=== PATIENT | male | born 1990 | race Caucasian/White ===

== ENCOUNTER 2024-10-24 17:21 | Emergency (ER) | payer OTHER, SELFPAY ==
[2024-10-24] VITALS (14 sets, daily range): BP systolic 126–140; BP diastolic 87–98; PULSE 76–92; RESP 13–21; TEMP 37.6; O2SAT 95–99
--- NOTE | ~2024-10-24 | XR_ITS ---
CHEST RADIOGRAPH CLINICAL HISTORY: chest pain . COMPARISON: None available TECHNIQUE: Single portable view of the chest. FINDINGS The cardiomediastinal silhouette is unremarkable. The lungs are clear. Visualized osseous structures and soft tissues are unremarkable. IMPRESSION: No focal infiltrate or effusion. Reviewed, dictated and finalized at location A. ER MACHINE OPERATOR
--- NOTE | 2024-10-24 17:23 | ED_ITS ---
HPI - Chest Pain General Chief Complaint: Chest Pain Stated Complaint: pain on left side of chest & back Time Seen by Provider: 10/24/24 17:23 Source: patient Mode of arrival: ambulatory Limitations: no limitations History of Present Illness HPI narrative: 34-year-old male with no significant past medical history presents to the ED with a 1 day history of -- left-sided chest pain which radiates to his arm. Pain is intermittent with spontaneous resolution. Pain is not precipitated by exercise. -- Shortness of breath. -- He feels a cold flush over his body. -- Upper abdominal pain. He had some nausea without any vomiting. No diarrhea. No radiation of the pain is rated -- pressure behind right eye which started yesterday and resolved spontaneously. Currently he has blurred vision. MD complaint: chest pain Onset (ago): day(s) ( 1 day) Timing of current episode: episodic Prior episodes: Yes Onset: during rest Pain location: left chest Pain radiation: none Severity: moderate Quality: aching Relieving factors: nothing Exacerbating factors: nothing Associated symptoms: nausea Treatment prior to arrival: none Risk Factors Coronary artery disease risk factors: hyperlipidemia Thoracic aortic dissection risk factors: none Review of Systems 2 Review of Systems: All systems reviewed & are unremarkable except as noted in HPI and below Constitutional: Constitutional: Reports as per HPI and Reports no additional constitutional complaints Eyes: Eyes: Reports as per HPI and Reports no additional eye complaints ENT: Reports system reviewed and no additional complaints, except as documented and Reports as per HPI Cardiovascular: Cardiovascular: Reports as per HPI, Reports no additional cardiovascular complaints and Reports chest pain Respiratory: Respiratory: Reports as per HPI, Reports no additional respiratory complaints and Reports dyspnea Gastrointestinal: Gastrointestinal: Reports as per HPI, Reports no additional gastrointestinal complaints and Reports abdominal pain Genitourinary: Genitourinary: Reports no additional male genitourinary complaints Musculoskeletal: Musculoskeletal: Reports no additional musculoskeletal complaints and Reports as per HPI Integumentary/Breasts: Skin/Breast: Reports system reviewed and no additional complaints, except as docu and Reports as per HPI Neurologic: Reports system reviewed and no additional complaints, except as documented and Reports as per HPI Psychiatric: Psychiatric: Reports no additional psychiatric complaints and Reports as per HPI Endocrine: Endocrine: Reports no additional endocrine complaints and Reports as per HPI Hematologic/Lymphatic: Hematologic/Lymphatic: Reports no additional hematologic/lymphatic complaints and Reports as per HPI Allergic/Immunologic: Allergic/Immunologic: Reports no additional allergic/immunologic complaints and Reports as per HPI Exam 2 Narrative: temperature is 99.6?. Const: General: healthy appearing and no acute distress Nutritional Appearance: well nourished Orientation/consciousness: patient oriented x3 Limitations: no limitations HENMT: Head: normal to inspection Ears: external ears normal F blossom/Nose/Sinus: Normal external nose present Face and sinus: normal facial exam Mouth: Yes Normal oral and palatal mucosa present Throat: posterior oropharynx normal Eyes: Conjunctivae: conjunctivae normal Pupils: Equal, round and reactive pupils present EOM: EOMs intact bilaterally Direct Ophthalmoscopy: no photophobia Other: Funduscopic examination of the right eye did not show any hemorrhage or exudates on the right side. Neck: Neck: normal visual inspection, no lymphadenopathy and no meningeal signs Chest: Chest palpation & inspection: normal inspection of the chest Resp: Effort & Inspection: normal respiratory effort Auscultation: clear to auscultation bilaterally Cardio: Rate: regular rate Rhythm: regular rhythm GI: GI Palp: Yes Soft to palpation Auscultation: normal bowel sounds O ther: No tenderness/ rigidity /rebound : General: Yes no CVA tenderness Back/Spine/Pelvis: Back: no CVA tenderness Skin: General skin exam: normal color Rashes: no rashes Wounds: no wounds Neuro: General: patient oriented x3, moves all extremities, no meningeal signs, no focal motor deficits and CN's II-XI intact bilaterally Cranial nerves: Yes Nystagmus not present Speech: normal speech Gait exam (Neuro): Normal gait present Extrem: General: normal to inspection and no clubbing, cyanosis or edema Psych: Mental Status: mental status grossly normal Affect: normal affect Course Course Emergency Course: Chest pain-- negative troponins. Chest x-ray is unremarkable. EKG did not show any acute findings. Abdominal pain-- normal white cell count. Normal lipase. shortness of breath- Patient is saturating 98% on room air with a respiratory rate of 20. Chest is clear on auscultation. right eye blurred vision-- Eye examination is unremarkable. anxiety Vital Signs Vital signs: Vital Signs Temperature 37.6 C 10/24/24 17:23 Pulse Rate 89 10/24/24 17:23 Respiratory Rate 20 10/24/24 17:23 Blood Pressure 140/98 H 10/24/24 17:23 Pulse Oximetry 98 10/24/24 17:23 Oxygen Delivery Room Air 10/24/24 17:23 Temperature 37.6 C 10/24/24 17:23 Pulse Rate 92 10/24/24 17:46 Respiratory Rate 21 H 10/24/24 17:46 Blood Pressure 133/93 H 10/24/24 17:46 Pulse Oximetry 99 10/24/24 17:46 Oxygen Delivery Room Air 10/24/24 17:46 MDM - Chest Pain MDM Narrative Medical decision making narrative: Chest pain abdominal pain anxiety Differential Diagnosis Differential diagnosis: Likely atypical chest pain Medical Records Data Attestation: I reviewed the patient's medical records. Lab Data 10/24/24 17:44 10/24/24 17:44 Labs: Lab Results 10/24/24 10/24/24 10/24/24 Range/Units 17:39 17:44 17:45 WBC 7.3 (4.8-10.8) K/mm3 RBC 4.90 (4.70-6.10) M/mm3 Hgb 14.6 (14.0-18.0) g/dL Hct 43.6 (40.0-54.0) % MCV 89.0 (78.0-102.0) fL MCH 29.8 (27.0-31.0) pg MCHC 33.5 (32-36) g/dL RDW 13.2 (11.6-14.4) % Plt Count 281 (150-420) K/mm3 MPV 9.5 (8.7-11.0) fl Immature Gran % (Auto) 0.3 H (0.0-0.0) % Neut % (Auto) 63.7 (50.0-70.0) % Lymph % (Auto) 24.8 (18.0-42.0) % [place] % (Auto) 8.5 (2.0-11.0) % Eos % (Auto) 1.9 (1.0-6.0) % Baso % (Auto) 0.8 (0.0-1.0) % Lymph # (Auto) 1.81 (1.10-4.50) K/mm3 [place] # (Auto) 0.62 (0.10-0.90) K/mm3 Eos # (Auto) 0.14 (0.02-0.50) K/mm3 Baso # (Auto) 0.06 (0.00-0.10) K/mm3 Abs Immat Gran (auto) 0.02 H (0.00-0.00) K/mm3 Absolute Neuts (auto) 4.65 (1.70-7.20) K/mm3 Absolute Nucleated RBC 0.00 (0.00-0.00) K/mm3 Nucleated RBC % 0.0 (0-0.0) % PT 11.5 (9.50-12.1) Seconds INR 1.0 D-Dimer 0.19 (0.19-0.50) mg/L Sodium 140 (136-145) mmol/L Potassium 3.4 L (3.5-5.1) mmol/L Chloride 104 (98-108) mmol/L Carbon Dioxide 27 (21-32) mmol/L Anion Gap 9 (4-12) mmol/L BUN 9 (7-18) mg/dL Creatinine 0.78 (0.70-1.30) mg/dL Estim Creat Clear Calc 139 ml/min Estimated GFR > 60 (59 - ) Glucose 105 H (70-99) mg/dL Calculated Osmolality 288 (285-295) mOsm/kg Lactic Acid 0.9 (0.4-2.0) mmol/L Calcium 8.6 (8.5-10.1) mg/dL Total Bilirubin 0.5 (0.00-1.00) mg/dL AST 28 (15-37) U/L ALT 51 (16-63) U/L Alkaline Phosphatase 54 (46-116) U/L Troponin I < 4.0 (0.00-60.4) ng/L Total Protein 7.2 (6.4-8.2) g/dL Albumin 4.0 (3.4-5.0) g/dL Lipase 20 (16-77) U/L Influenza A (RT-PCR) Negative (Negative) Influenza B (RT-PCR) Negative (Negative) RSV (RT-PCR) Negative (Negative) SARS-CoV-2 RNA (RT-PCR) Negative (Negative) Discharge Plan Discharge Clinical Impression: Atypical chest pain, Anxiety Abdominal pain Qualifiers: Abdominal location: generalized Qualified Code(s): R10.84 - Generalized abdominal pain Patient Disposition: Home, Self-Care Condition: Stable Instructions: Antibiotic Form, Anxiety (ED) Patient Language: Yi Follow-up/Referrals: Fidel,POLA Bonilla [Primary Care Provider] - Time of Disposition: 18:48
--- NOTE | 2024-10-24 17:32 | ECG_ITS ---
Test Date: 2024-10-24 17:56:21 Measurements Intervals [place] Rate: 88 P: 35 NM: 136 QRS: 13 QRSD: 85 T: 31 QT: 366 QTc: 444 Interpretive Statements SINUS RHYTHM INCOMPLETE RIGHT BUNDLE BRANCH BLOCK No previous ECG available for comparison Electronically Signed On 10-26-2024 16:14:40 COMPUTER AIDED DESIGN DESIGNER by Esme Cheema M.D.
--- NOTE | 2024-10-24 17:40 | PC.NURSE ---
Covid culture sent to lab
[2024-10-24 17:49] LABS: Basophils Absolute Auto 0.06 K/mm3 (0.00-0.10); Basophils Percent Auto 0.8 % (0.0-1.0); Eosinophils Absolute Auto 0.14 K/mm3 (0.02-0.50); Eosinophils Percent Auto 1.9 % (1.0-6.0); Hematocrit 43.6 % (40.0-54.0); Hemoglobin 14.6 g/dL (14.0-18.0); Immature Granulocyte Absolute 0.02 K/mm3 (0.00-0.00); Immature Granulocyte Percent A 0.3 % (0.0-0.0); Lymphocytes Absolute Auto 1.81 K/mm3 (1.10-4.50); Lymphocytes Percent Auto 24.8 % (18.0-42.0); Mean Corpuscular HGB Conc 33.5 g/dL (32-36); Mean Corpuscular Hemoglobin 29.8 pg (27.0-31.0); Mean Platelet Volume 9.5 fl (8.7-11.0); Monocytes Absolute Auto 0.62 K/mm3 (0.10-0.90); Monocytes Percent Auto 8.5 % (2.0-11.0); Neutrophils Absolute Auto 4.65 K/mm3 (1.70-7.20); Neutrophils Percent Auto 63.7 % (50.0-70.0); Platelet Count Result 281 K/mm3 (150-420); Red Cell Distribution Width 13.2 % (11.6-14.4); White Blood Count 7.3 K/mm3 (4.8-10.8)
[2024-10-24 18:06] LABS: D Dimer 0.19 mg/L (0.19-0.50); Prothrombin Time 11.5 Seconds (9.50-12.1)
[2024-10-24 18:09] LABS: Lactic Acid Reflex 0.9 mmol/L (0.4-2.0)
[2024-10-24 18:20] LABS: Alanine Aminotransferase 51 U/L (16-63); Alkaline Phosphatase 54 U/L (46-116); Anion Gap 9 mmol/L (4-12); Aspartate Amino Transferase 28 U/L (15-37); Bilirubin,Total 0.5 mg/dL (0.00-1.00); Blood Urea Nitrogen 9 mg/dL (7-18); Calcium 8.6 mg/dL (8.5-10.1); Carbon Dioxide 27 mmol/L (21-32); Chloride 104 mmol/L (98-108); Estimated CRCL calculation 139 ml/min; Estimated Glomerular Filt Rate > 60; Glucose 105 mg/dL (70-99); Osmolality Calculated 288 mOsm/kg (285-295); Potassium 3.4 mmol/L (3.5-5.1); Sodium 140 mmol/L (136-145); Total Protein 7.2 g/dL (6.4-8.2)
[2024-10-24 18:20] LABS: Lipase 20 U/L (16-77); Troponin I < 4.0 ng/L (0.00-60.4)
[2024-10-24 18:29] LABS: SARS-CoV-2 RNA PCR Negative (Negative)
[2024-10-24 18:35] LABS: Influenza A QL RT-PCR Negative (Negative); Influenza B QL RT-PCR Negative (Negative); RSV RNA, RT-PCR Negative (Negative)
== END 2024-10-24 18:53 | disposition home or self-care (01) ==
PROVIDERS: Emergency Provider Internal Medicine Critical Care Medicine; PCP Physician Assistant
DX: R07.89 Other chest pain (principal); R10.84 Generalized abdominal pain; F41.9 Anxiety disorder, unspecified; Z20.822 Contact with and (suspected) exposure to COVID-19
CPT/HCPCS: 36415; 71045; 80053; 83605; 83690; 84484; 85025; 85380; 85610; 87637; 93005; 99284

== ENCOUNTER 2025-09-15 23:35 | Emergency (ER) | payer OTHER, SELFPAY ==
--- NOTE | 2025-09-15 23:38 | ED.UPPEXIN ---
HPI - Extremity Injury (Upper) General Chief Complaint: Extremity Problem,Nontraumatic Stated Complaint: shoulder pain Time Seen by Provider: 09/15/25 23:36 Source: patient Mode of arrival: ambulatory Limitations: no limitations History of Present Illness HPI narrative: Patient is a 35-year-old male with a right shoulder redness and lump noted today. Patient has a history of a DVT and was concerned about this being a DVT. Patient was shoveling snow yesterday and it appeared thereafter. MD complaint: injury to: right and shoulder Onset (ago): day(s) (Two) Other injuries: none Place: home Severity: moderate Severity scale (1-10): 4 Relieving factors: immobilization Exacerbating factors: movement of extremity Context: laceration Associated symptoms: denies other symptoms Treatments prior to arrival: other (None) Review of Systems Review of Systems: All systems reviewed & are unremarkable except as noted in HPI and below Constitutional: Constitutional: Reports no additional constitutional complaints Eyes: Eyes: Reports no additional eye complaints ENT: Reports system reviewed and no additional complaints, except as documented Cardiovascular: Cardiovascular: Reports no additional cardiovascular complaints Respiratory: Respiratory: Reports no additional respiratory complaints Gastrointestinal: Gastrointestinal: Reports no additional gastrointestinal complaints Genitourinary: Genitourinary: Reports no additional male genitourinary complaints Musculoskeletal: Musculoskeletal: Reports no additional musculoskeletal complaints Integumentary/Breasts: Skin/Breast: Reports system reviewed and no additional complaints, except as docu Neurologic: Reports system reviewed and no additional complaints, except as documented Psychiatric: Psychiatric: Reports no additional psychiatric complaints Endocrine: Endocrine: Reports no additional endocrine complaints Hematologic/Lymphatic: Hematologic/Lymphatic: Reports no additional hematologic/lymphatic complaints Allergic/Immunologic: Allergic/Immunologic: Reports no additional allergic/immunologic complaints Exam Const: General: healthy appearing Nutritional Appearance: well nourished Orientation/consciousness: patient oriented x3 Limitations: no limitations HENMT: Head: normal to inspection Ears: external ears normal Face/Nose/Sinus: Normal external nose present Eyes: Conjunctivae: conjunctivae normal Pupils: Equal, round and reactive pupils present EOM: EOMs intact bilaterally Neck: Neck: normal visual inspection Chest: Chest palpation & inspection: normal inspection of the chest Resp: Effort & Inspection: normal respiratory effort, not labored, no retractions and not tachypneic Auscultation: clear to auscultation bilaterally, no crackles, no rales and no rhonchi Cardio: Rate: regular rate Rhythm: regular rhythm Heart sounds: no murmurs GI: Inspection: non-distended GI Palp: Yes Soft to palpation and Yes Tenderness to palpation present (GI) Auscultation: normal bowel sounds : General: Yes bladder normal to palpation Back/Spine/Pelvis: Back: no CVA tenderness Skin: General skin exam: normal color Rashes: no rashes Wounds: no wounds Neuro: General: patient oriented x3, moves all extremities, no meningeal signs and no focal motor deficits Cranial nerves: Yes Nystagmus not present Speech: normal speech Gait exam (Neuro): Normal gait present Extrem: General: normal to inspection Psych: Mental Status: mental status grossly normal Affect: normal affect Attitude: cooperative Course Vital Signs Vital signs: Vital Signs Temperature 36.2 C L 09/15/25 23:39 Pulse Rate 87 09/15/25 23:39 Respiratory Rate 18 09/15/25 23:39 Blood Pressure 133/88 09/15/25 23:39 Pulse Oximetry 97 09/15/25 23:39 Oxygen Delivery Room Air 09/15/25 23:39 Temperature 36.2 C L 09/15/25 23:39 Pulse Rate 87 09/15/25 23:39 Respiratory Rate 18 09/15/25 23:39 Blood Pressure 133/88 09/15/25 23:39 Pulse Oximetry 97 09/15/25 23:39 Oxygen Delivery Room Air 09/15/25 23:39 MDM - Extremity Injury (Upper) MDM Narrative Medical decision making narrative: Patient is a 35-year-old male with a right shoulder nodular area for the past 2 months. Patient concerned about DVT in this area. Reassurance at this time that the at that is non area for DVT to linger. Reassurance given to the patient and family no need for further workup for this issue. Discharge Plan Discharge Clinical Impression: Abrasion of skin Patient Disposition: Home Condition: Stable Instructions: Abrasion (ED) Patient Language: Chinese Follow-up/Referrals: UNKNOWN,DOCTOR [Primary Care Provider] Time of Disposition: 23:57
[2025-09-15 23:39] VITALS: BP 133/88; PULSE 87; RESP 18; TEMP 36.2; O2SAT 97
--- NOTE | 2025-09-16 00:05 | PC.NURSE ---
PATIENT IS RESTING ON STRETCHER. FAMILY MEMBER AT HIS SIDE. CALL LIGHT IN REACH
[2025-09-16 00:14] VITALS: BP 128/76; PULSE 80; RESP 20; O2SAT 97
== END 2025-09-16 00:14 | disposition home or self-care (01) ==
LOC: CHSED 09-16
PROVIDERS: Emergency Provider Emergency Medicine
DX: S40.211A Abrasion of right shoulder, initial encounter (principal); X58.XXXA Exposure to other specified factors, initial encounter
CPT/HCPCS: 99282